=== PATIENT | female | born 1975 | race African-American/Black ===

== ENCOUNTER → 2017-06-15 14:49 | Outpatient (CLI) | payer BC | END | disposition home or self-care (01) | LOC: D.MRI 14:49 | DX: M24.10 Other articular cartilage disorders, unspecified site (principal) ==

== ENCOUNTER 2017-07-06 08:21 | Day surgery (SDC) | payer BC ==
--- NOTE | ~2017-07-06 | OP ---
PATIENT NAME: BARB AMBROSE MEDICAL RECORD: [id number] :73 [facility] DATE: SURGEON: ASHLEY GOULD MD DATE OF OPERATION: 07/06/2017 PREOPERATIVE DIAGNOSIS: Medial meniscus tear of the left knee. POSTOPERATIVE DIAGNOSIS: Medial meniscus tear of the left knee. PROCEDURE: Arthroscopic partial medial meniscectomy of the left knee. SURGEON: Ashley Gould MD ANESTHESIA: General. INTRAOPERATIVE COMPLICATIONS: None. SUMMARY OF PATHOLOGIC FINDINGS: The patient has complex tear of the posterior horn of medial meniscus consistent with preoperative radiographs. OPERATIVE SUMMARY IN DETAIL: After obtaining the appropriate preoperative orthopedic surgery consent as well as anesthetic consultation, evaluation and clearance, the patient was brought to the operating suite and placed on the operating table in supine position. After general laryngeal mask was administered, tourniquet was placed on the proximal aspect of left lower extremity. Left lower extremity was then prepped and draped in a routine sterile fashion. The leg was elevated and exsanguinated, tourniquet inflated to 350 mmHg. Inferolateral portal was established followed by superomedial portal and inferomedial portal. Diagnostic arthroscopy did reveal the patient to have the above findings. Specifically, a complex tear of the posterior horn of medial meniscus, this was debrided with both meniscotomes as well as an arthroscopic resector back to stable meniscal elements. No chondromalacia was seen. Having completed this, arthroscopy portals were closed in routine interrupted fashion using 4-0 Prolene. The knee was insufflated with 30 cc of 0.25% Marcaine with epinephrine and 40 mg of Depo-Medrol. Arthroscopy portals were closed in routine interrupted fashion using 4-0 Prolene. Sterile dressings were applied. The patient was awakened, taken to the recovery room in stable condition. All final needle and sponge counts were correct. TRANSINT:[id number] Voice Confirmation ID: [id number] DOCUMENT ID: [id number] LUIS FERNANDO SIMTH, ASHLEY VILLEGAS at 0827 CC: [id number] DICTATION DATE: 07/08/17 1619 ROUTE SALES PERSON: 07/08/17 1650 DEP [facility] 07/06/17 [place] [address]
[~2017-07-06 08:21] MED LIST: ULTRAM50 MG PO
[2017-07-06] MEDS ORDERED: FUROSEMIDE40 MG PO (10:08)
[2017-07-06] MEDS ORDERED: VOLTAREN75 MG PO (10:09)
[2017-07-06] MEDS ORDERED: BELVIQ PO (10:10)
[2017-07-06 10:15] VITALS: BP 124/84; BMI 45.3
[2017-07-06 10:55] LABS: HEMATOCRIT 45.9 % (36.0-48.0); HEMOGLOBIN 15.5 g/dL (12-16); MCH 30.2 pg (26.0-34.0); MCHC 33.8 g/dL (31.0-37.0); MCV 89.3 fL (80.0-100.0); MEAN PLATELET VOLUME 10.8 fL (7.4-10.4); RBC 5.14 10x6/uL (4.00-5.40); WBC 4.9 10x3/uL (4.8-10.8)
[2017-07-06] MEDS ORDERED: HYDROCODONE-APA1 TAB PO (12:14)
== END 2017-07-06 14:50 | disposition home or self-care (01) ==
LOC: D.OPS 08:21 → D.PAN 14:45 → D.OPS 14:50
PROVIDERS: Anesthesiology
DX: S83.242A Other tear of medial meniscus, current injury, left knee, initial encounter (principal); E66.01 Morbid (severe) obesity due to excess calories; Z68.42 Body mass index [BMI] 45.0-49.9, adult; M25.562 Pain in left knee; Z01.812 Encounter for preprocedural laboratory examination